=== PATIENT | female | born 1995 | race Two or more races ===

== ENCOUNTER 2017-02-21 16:13 | Emergency (ER) | payer OTHER ==
[2017-02-21] MEDS ORDERED: Morphine INJ* 4 MG/ML 1 ML SYRINGE IV ONE (18:21)
[2017-02-21] MEDS ORDERED: Ondansetron INJ* 2 MG/ML VIAL IV ONE (18:21)
[2017-02-21] MEDS ORDERED: NS 0.9% 1000 ML* 2,000 ML IV ONE (18:21)
[2017-02-21 18:58] LABS: Hematocrit 36 % (35-47); Hemoglobin 12.5 g/dl (12.0-16.0); Mean Corpuscular HGB Conc 35 g/dl (31-36); Mean Corpuscular Hemoglobin 31 pg (27-31); Mean Corpuscular Volume 87 fL (80-97); Mean Platelet Volume 8 um3 (7.4-10.4); Red Cell Distribution Width 14 % (10.5-15); White Blood Count 9.6 10^3/ul (3.5-10.8)
--- NOTE | 2017-02-21 19:02 | ED ---
Erwin Bradley Thomas, scribed for Edward Soria MD on 02/21/17 at 1814 . Abdominal Pain/Female - HPI Summary HPI Summary: The pt is a 21 y/o F presenting to the ED c/o abd pain that began gradually this AM at 07:30. The location of her pain is inferior to her umbilicus. This is near the location of her normal menstrual cramps. The pain radiates to her back and down her lower extremities. The pt rates the pain 7/10. The pain is aggravated and alleviated by nothing. The patient has treated the pain with Naproxen [employer], which has not relieved the pain. Pt additionally c/o nausea, vomiting (1x), diarrhea, bloody stool (red stool), chills, sore throat, rhinorrhea, and flank pain. She has used 4 pads today, which is more than usual for her. She reports recent sick contacts. She denies eating any unusual foods recently or recent travel. Her apptetite has been normal today, but she vomited back up all of the food that she ate. PMHx: previously healthy. PSHx: none. SHx: no smoking, no alcohol use. FHx: ovarian cysts. She ate today. - History of Current Complaint Chief Complaint: EDAbdPain Stated Complaint: ABD PAIN Time Seen by Provider: 02/21/17 18:00 Hx Obtained From: Patient Onset/Duration: Gradual Onset, Lasting Hours - 07:30, Still Present Timing: Constant Pain Intensity: 7 Pain Scale Used: 0-10 Numeric Location: Other - inferior to umbilicus Radiates: Yes Radiates to: Back, Other - Lower extremities Aggravating Factor(s): Nothing Alleviating Factor(s): Nothing Associated Signs and Symptoms: Positive: Back Pain, Blood in Stool - ("red stool "), Nausea, Vomiting, Diarrhea, Other: - POS: chills, sore throat, rhinorrhea, flank pain (R>L), increased menstrual bleeding; NEG: anorexia Allergies/Adverse Reactions: Allergies Allergy/AdvReac Type Severity Reaction Status Date / Time No Known Allergies Allergy Verified 02/21/17 16:29 PMH/Surg Hx/FS Hx/Imm Hx Previously Healthy: Yes Cardiovascular History: Denies: Hx Myocardial Infarction Respiratory History: Denies: Hx Chronic Obstructive Pulmonary Disease (COPD) Infectious Disease History: Denies: Traveled Outside the [place] in Last 30 Days - Family History Known Family History: Positive: Other - POS: ovarian cysts - Social History Hx Tobacco Use: No Review of Systems Positive: Chills. Negative: Fever Positive: Sore Throat, Nasal Discharge Positive: Abdominal Pain - onset this AM at 07:30, Vomiting, Diarrhea, Nausea, Other - POS: bloody stool ("red stool"); NEG: anorexia Positive: flank pain - R>L, other - POS: increased menstrual bleeding All Other Systems Reviewed And Are Negative: Yes Physical Exam - Summary Physical Exam Summary: The patient is well-nourished in no acute distress and in no acute pain. The skin is warm and dry and skin color reflects adequate perfusion. HEENT: The head is normocephalic and atraumatic. The pupils are equal and reactive. The conjunctivae are clear and without drainage. Nares are patent and without drainage. Mouth reveals moist mucous membranes and the throat is without erythema and exudate. The external ears are intact. There is no sinus tenderness. Neck is supple with full range of motion and non-tender. There are no carotid bruits. There is no neck vein distension. There is no cervical lymphadenopathy. Respiratory: Chest is non-tender. Lungs are clear to auscultation and breath sounds are symmetrical and equal. Cardiovascular: Hear tis regular rate and rhythm. There is no murmur or rub auscultated. There is no peripheral edema and pulses are symmetrical and equal. Abdomen: The abdomen is soft and obese. It is tender to [place] as well as over her uterus. She also has right CVA tenderness. There is no rebound or guarding. There is RLQ pain. There is pain with flexion of both legs. There are normal bowel sounds heard in all four quadrants and there is no organomegaly palpated. Musculoskeletal: There is no back pain noted. Extremities are non-tender with full range of motion. There is good capillary refill. There is no peripheral edema or calf tenderness elicited. Neurological: Patient is alert and oriented to person, place and time. The patient has symmetrical motor strength in all four extremities. Cranial nerves are grossly intact. Deep tendon reflexes are symmetrical and equal in all four extremities. Psychiatric: The patient has an appropriate affect and does not exhibit any anxiety or depression. Triage Information Reviewed: Yes Vital Signs On Initial Exam: Initial Vitals Temp Pulse Resp BP Pulse Ox 98.6 F 55 17 139/82 98 02/21/17 16:22 02/21/17 16:22 02/21/17 16:22 02/21/17 16:22 02/21/17 16:22 Vital Signs Reviewed: Yes Diagnostics - Vital Signs Vital Signs Temp Pulse Resp BP Pulse Ox 02/21/17 16:22 98.6 F 55 17 139/82 98 - Laboratory Lab Results: Lab Results 02/21/17 Range/Units 18:45 WBC 9.6 (3.5-10.8) 10^3/ul RBC 4.10 (4.0-5.4) 10^6/ul Hgb 12.5 (12.0-16.0) g/dl Hct 36 (35-47) % MCV 87 (80-97) fL MCH 31 (27-31) pg MCHC 35 (31-36) g/dl RDW 14 (10.5-15) % Plt Count 242 (150-450) 10^3/ul MPV 8 (7.4-10.4) um3 Neut % (Auto) 69.4 (38-83) % Lymph % (Auto) 20.7 L (25-47) % [place] % (Auto) 7.6 (1-9) % Eos % (Auto) 1.8 (0-6) % Baso % (Auto) 0.5 (0-2) % Absolute Neuts (auto) 6.6 (1.5-7.7) 10^3/ul Absolute Lymphs (auto) 2.0 (1.0-4.8) 10^3/ul Absolute Monos (auto) 0.7 (0-0.8) 10^3/ul Absolute Eos (auto) 0.2 (0-0.6) 10^3/ul Absolute Basos (auto) 0 (0-0.2) 10^3/ul Absolute Nucleated RBC 0.01 10^3/ul Nucleated RBC % 0.1 Result Diagrams: 02/21/17 18:45 Lab Statement: Any lab studies that have been ordered have been reviewed, and results considered in the medical decision making process. Abdominal Pain Fem Course/Dx - Diagnoses Differential Diagnosis: Positive: Appendicitis, Ovarian Cyst, Urinary Tract Infection, Other - gastritis, menses Provider Diagnoses: abdominal pain Discharge - Discharge Plan Condition: Fair Disposition: OTHER Discharge Disposition Comment: Singed out from Dr. Soria to Dr. Barajas Referrals: RADHA Kelly [Primary Care Provider] - The documentation as recorded by the Erwin sebastian Thomas accurately reflects the service I personally performed and the decisions made by me, Edward Soria MD.
[2017-02-21 19:06] LABS: Urine Bilirubin Negative (Negative); Urine Glucose Negative (Negative); Urine Nitrite Negative (Negative)
[2017-02-21 19:15] LABS: ALT 11 U/L (7-52); AST 14 U/L (13-39); Alkaline Phosphatase 44 U/L (34-104); Amylase 54 U/L (29-103); Anion Gap 6 mmol/L (2-11); BUN/Creatinine Ratio 12.5 (8-20); Blood Urea Nitrogen 9 mg/dL (6-24); C Reactive Protein 4.43 mg/L (< 5.00); CO2 Carbon Dioxide 26 mmol/L (22-32); Calcium 9.1 mg/dL (8.6-10.3); Chloride 105 mmol/L (101-111); EGFR African American 134.2 (>60); EGFR Non-African American 104.3 (>60); Globulin 3.3 g/dL (2-4); Glucose 95 mg/dL (70-100); Lipase 41 U/L (11.0-82.0); Potassium 3.6 mmol/L (3.5-5.0); Sodium 137 mmol/L (133-145); Total Protein 7.3 g/dL (6.4-8.9)
--- NOTE | 2017-02-21 19:36 | RAD ---
Indication: Vaginal bleeding, ovarian torsion. Real-time sonography of the pelvis was performed. Endovaginally the uterus measures 6.9 x 3.3 x 4.2 cm. Endometrial echo measures 6 mm. The right ovary measures 2.1 x 1.5 x 2.7 cm. Left ovary measures 2.3 x 1.7 x 1.7 cm. Doppler interrogation demonstrates flow in both ovaries. Trace amount of free fluid is noted in the cul-de-sac. IMPRESSION: No adnexal masses are noted. Trace amount of free fluid is noted in the cul-de-sac.
[2017-02-21] MEDS ORDERED: Iohexol 300* (CONTRAST) 10 ML SDV IV ONE (20:16)
--- NOTE | 2017-02-21 21:13 | RAD ---
Indication: Right lower quadrant pain. Contrast: Administered 139.3 ml of OMNIPAQUE 300 mg/ml CT of the abdomen and pelvis was performed after oral and IV contrast administration. Coronal and sagittal reconstructed images were obtained. Lung bases demonstrate no pleural fluid, nodules or masses. Heart is of normal size without evidence of pericardial effusion. Liver is normal in size. No focal lesions or intrahepatic ductal dilatation is noted. The gallbladder demonstrates no calcified gallstones. No pericholecystic fluid or wall thickening. The pancreas demonstrates no mass or pancreatic duct dilatation. The spleen is normal in size. No adrenal masses noted. The kidneys demonstrate symmetric nephrograms without focal lesions. Gallbladder demonstrates no calcified gallstones. No pericholecystic fluid or wall thickening is identified. Retroaortic left renal vein is noted. No dilated loops of bowel are noted. CT of the pelvis demonstrates normal appendix. Urinary bladder is unremarkable. Trace amount of free fluid is noted in the cul-de-sac. Uterus and ovaries are unremarkable. No hernias are noted. IMPRESSION: Normal appendix. Trace amount of free fluid is noted in the cul-de-sac. No abnormally dilated loops of bowel are noted. No other masses or fluid collections are noted.
[2017-02-21] MEDS ORDERED: Ketorolac INJ* 30 MG/ML 1 ML VIAL IV ONE (21:33)
[2017-02-21] MEDS ORDERED: HYDROcodone/ACETAMIN 5-325 MG* 1 TAB PO ONE (21:33)
[2017-02-21] MEDS ORDERED: Ondansetron ODT TAB* 4 MG PO ONE (21:34)
--- NOTE | 2017-02-21 21:36 | ED ---
Erwin Bradley Thomas, scribed for Eufemia Barajas MD on 02/21/17 at 2132 . Progress - Progress Note Progress Note: The patient is a sign out from Dr. Soria to Dr. Barajas. CT Abd/Pel. Interpreted by radiologist. Impression: Normal appendix. Trace amount of free fluid is noted in the cul-de-sac. No abnormally dilated loops of bowel are noted. No other masses or fluid collections are noted. US Transvaginal. Interpreted by radiologist. Impression: No adnexal masses are noted. Trace amount of free fluid is noted in the cul-de-sac. Course/Dx - Course Course Of Treatment: pt aware of results having some cramping now giving toradol and sending a script for small dose of norco and zofran home and to [facility] - Diagnoses Provider Diagnoses: abdominal pain The documentation as recorded by the Erwin sebastian Thomas accurately reflects the service I personally performed and the decisions made by , Eufemia Barajas MD.
[2017-02-21 22:18] VITALS: BP 117/76
== END 2017-02-21 22:16 ==
LOC: ED 16:13
DX: R10.31 Right lower quadrant pain (principal); N93.9 Abnormal uterine and vaginal bleeding, unspecified
CPT/HCPCS: 36415; 74177; 76830; 80053; 81003; 82150; 83605; 83690; 84702; 85025; 86140; 96360; 96374; 96375; 99283; A9270-GY; J1885; J2270; J2405; Q9967

== ENCOUNTER 2018-08-06 19:00 | Emergency (ER) | payer BC, OTHER ==
--- NOTE | 2018-08-06 21:18 | ED ---
Abdominal Pain/Female - HPI Summary HPI Summary: 22-year-old female presents with onset of left sided abdominal pain with nausea , vomiting, diarrhea yesterday. States she had approximately 8 episodes of vomiting yesterday and only 3-4 episodes today with the most recent occurring while in the waiting room approximately one hour ago. Reports vomiting stomach content. States yesterday she had approximately 6 episodes of watery diarrhea but only 3 episodes today. Patient states she has irregular spotting due to the Mirena. Last episode of spotting was approximately 3 weeks ago. Denies fever, chills, dizziness, lightheadedness, chest pain, palpitations, shortness of breath, flank pain, dysuria, frequency, urgency, hematuria, vaginal discharge , dyspareunia, recent travel out of the country, or consumption of raw or undercooked meats or seafood. - History of Current Complaint Chief Complaint: EDAbdPain Stated Complaint: ABD PAIN/VOMITING Time Seen by Provider: 08/06/18 21:16 Hx Obtained From: Patient Pain Intensity: 3 Allergies/Adverse Reactions: Allergies Allergy/AdvReac Type Severity Reaction Status Date / Time No Known Allergies Allergy Verified 08/06/18 19:16 PMH/Surg Hx/FS Hx/Imm Hx Previously Healthy: Yes - Denies significant PMH Cardiovascular History: Denies: Hx Myocardial Infarction Respiratory History: Denies: Hx Chronic Obstructive Pulmonary Disease (COPD) - Surgical History Surgery Procedure, Year, and Place: None Infectious Disease History: No Infectious Disease History: Denies: Traveled Outside the [place] in Last 30 Days - Family History Known Family History: Positive: Other - POS: ovarian cysts - Social History Occupation: Student Lives: Dormitory/Roommates Alcohol Use: None Substance Use Type: Reports: None Hx Tobacco Use: No Smoking Status (MU): Never Smoked Tobacco Review of Systems Negative: Fever, Chills Negative: Sore Throat Negative: Palpitations, Chest Pain Negative: Shortness Of Breath, Cough Positive: Abdominal Pain, Vomiting, Diarrhea, Nausea Negative: burning, dysuria, discharge, frequency, flank pain, hematuria, incontinence, urgency Musculoskeletal: Negative Skin: Negative Neurological: Negative All Other Systems Reviewed And Are Negative: Yes Physical Exam - Summary Physical Exam Summary: GENERAL APPEARANCE: Well developed, well nourished, alert and cooperative, and appears to be in no acute distress. THROAT: Oral cavity and pharynx normal. No inflammation, swelling, exudate, or lesions. Teeth and gingiva in good general condition. NECK: Neck supple, non-tender without lymphadenopathy. CARDIAC: Normal S1 and S2. No S3, S4 or murmurs. Rhythm is regular. There is no peripheral edema, cyanosis or pallor. Extremities are warm and well perfused. Capillary refill is less than 2 seconds. Peripheral pulses intact. LUNGS: Clear to auscultation without rales, rhonchi, wheezing or diminished breath sounds. ABDOMEN: Positive bowel sounds. Soft, nondistended. Mild generalized abdominal tenderness without guarding or rebound. No masses or hepatosplenomegally. No CVA tenderness. MUSKULOSKELETAL: ROM intact to all extremities. No joint erythema or tenderness. Normal muscular development. Normal gait. SKIN: Skin normal color, texture and turgor with no lesions or eruptions. Triage Information Reviewed: Yes Vital Signs On Initial Exam: Initial Vitals Temp Pulse Resp BP Pulse Ox 98.9 F 94 16 130/82 96 08/06/18 19:14 08/06/18 19:14 08/06/18 19:14 08/06/18 19:14 08/06/18 19:14 Vital Signs Reviewed: Yes Diagnostics - Vital Signs Vital Signs Temp Pulse Resp BP Pulse Ox 08/06/18 19:14 98.9 F 94 16 130/82 96 - Laboratory Result Diagrams: 08/06/18 21:42 08/06/18 21:42 Lab Statement: Any lab studies that have been ordered have been reviewed, and results considered in the medical decision making process. Re-Evaluation - Re-Evaluation First Eval Re-Evaluation Time: 23:36 Change: Improved Comment: Patient states she is feeling better. She has received 2 liters IVF and ondansetron 8 mg IV. Afebrile. VSS. She is presently taking PO fluids without any further episodes of vomiting or diarrhea. CBC and CMP normal. Serum negative. UA pending. Plan is to d/c home pending UA results. Abdominal Pain Fem Course/Dx - Course Course Of Treatment: 22-year-old female presents with onset of left sided abdominal pain with nausea, vomiting, diarrhea yesterday. States she had approximately 8 episodes of vomiting yesterday and only 3-4 episodes today with the most recent occurring while in the waiting room approximately one hour ago. Reports vomiting stomach content. States yesterday she had approximately 6 episodes of watery diarrhea but only 3 episodes today. Patient states she has irregular spotting due to the Mirena. Last episode of spotting was approximately 3 weeks ago. Denies fever, chills, dizziness, lightheadedness, chest pain, palpitations, shortness of breath, flank pain, dysuria, frequency, urgency, hematuria, vaginal discharge, dyspareunia, recent travel out of the country, or consumption of raw or undercooked meats or seafood. Afebrile. Vital signs stable. Exam revealed an obese young adult female in no acute distress. She had some mild generalized abdominal tenderness without guarding or rebound. Remainder of exam was unremarkable. CBC and CMP were within normal limits. Urinalysis showed 1+ ketones otherwise normal. She received a total of 2 L of normal saline and ondansetron 8 mg IV with improvement in symptoms. Her vital signs remained stable and she was able to tolerate by mouth fluids without any further episodes of vomiting or diarrhea prior to discharge. Patient symptoms likely represent a viral gastroenteritis. I'm discharging her home with 2 doses of ondansetron ODT 4 mg every 6 hours as needed for nausea and vomiting and sending a prescription for some additional tablets if needed. She was afebrile with stable vital signs at time of discharge. She is to follow-up at the [facility] or her primary care provider in 3 days if symptoms do not improve. Anticipatory guidance warning symptoms were reviewed with the patient. Verbalizes understanding and agrees with plan of care. - Diagnoses Differential Diagnosis: Positive: Appendicitis, Diverticulitis, Gall Bladder Disease, , Urinary Tract Infection, Other - viral gastroenteritis, bacterial gastroenteritis Provider Diagnoses: Nausea vomiting and diarrhea Discharge - Sign-Out/Discharge Documenting (check all that apply): Patient Departure Patient Received Moderate/Deep Sedation with Procedure: No - Discharge Plan Condition: Stable Disposition: HOME Prescriptions: Ondansetron ODT TAB* [Zofran 4 MG Odt TAB*] 4 mg PO Q6H PRN #6 tab.odt PRN Reason: Nausea/Vomiting Patient Education Materials: Acute Nausea and Vomiting (ED), Acute Diarrhea (ED ) Referrals: No Primary Care Phys,NOPCP [Primary Care Provider] - Additional Instructions: Take ondansetron ODT 1 tab every 6 hours as needed for nausea or vomiting. Drink plenty of fluids. Try to drink small amounts frequently to avoid filling your stomach to full which can cause vomiting. Avoid beverages containing caffeine or artificial sweeteners as these can worsen diarrhea. If you are still having vomiting, start with a clear liquid diet including soup broths, Jello, popsicles, and libby-yann with carbonation stirred out of it. You may then advance to a bland diet including saltine crackers, toast, bananas , rice, and applesauce. Then return to a normal diet as tolerated. Follow up at the [facility] or with your primary care provider in 3 days if symptoms persist. Return to the emergency room if you develop fever greater than 100.5 F, have severe abdominal pain, persistent vomiting, blood in your vomit or stool, or any worsening of symptoms. - Billing Disposition and Condition Condition: STABLE Disposition: Home
[2018-08-06] MEDS ORDERED: Ondansetron INJ* 2 MG/ML VIAL IV ONE (21:25)
[2018-08-06] MEDS: NS 0.9% 1000 ML** 1,000 ML IV ONE ×2 (21:37→22:49)
[2018-08-06 21:50] LABS: ABS Basophils 0 10^3/ul (0-0.2); ABS Eosinophils 0.1 10^3/ul (0-0.6); ABS Lymphocytes 1.1 10^3/ul (1.0-4.8); ABS Monocytes 0.6 10^3/ul (0-0.8); ABS Nucleated RBC 0 10^3/ul; Eosinophil % 1.2 %; Hematocrit 37 % (35-47); Hemoglobin 12.6 g/dl (12.0-16.0); Lymphocyte % 19.4 %; Mean Corpuscular HGB Conc 34 g/dl (31-36); Mean Corpuscular Hemoglobin 29 pg (27-31); Mean Corpuscular Volume 85 fL (80-97); Mean Platelet Volume 7.8 fL (7.4-10.4); Nucleated Red Blood Cells % 0; Platelet Count 210 10^3/ul (150-450); Red Blood Count 4.38 10^6/ul (4.00-5.40); Red Cell Distribution Width 13 % (10.5-15); White Blood Count 5.8 10^3/ul (3.5-10.8)
[2018-08-06 22:07] LABS: ALT 23 U/L (7-52); AST 19 U/L (13-39); Albumin 4.1 g/dL (3.2-5.2); Albumin/Globulin Ratio 1.1 (1-3); Alkaline Phosphatase 69 U/L (34-104); Anion Gap 6 mmol/L (2-11); BUN/Creatinine Ratio 12.3 (8-20); Blood Urea Nitrogen 9 mg/dL (6-24); CO2 Carbon Dioxide 29 mmol/L (22-32); Calcium 9.1 mg/dL (8.6-10.3); Chloride 103 mmol/L (101-111); EGFR Non-African American 101.6 (>60); Globulin 3.7 g/dL (2-4); Glucose 94 mg/dL (70-100); Potassium 3.6 mmol/L (3.5-5.0); Sodium 138 mmol/L (135-145); Total Protein 7.8 g/dL (6.4-8.9)
[2018-08-06 22:13] LABS: HCG Pregnancy < 0.60 mIU/mL
[2018-08-06] MEDS ORDERED: Ketorolac INJ* 30 MG/ML 1 ML VIAL ONE (22:48)
[2018-08-06] MEDS ORDERED: Ketorolac INJ* 30 MG/ML 1 ML VIAL IV PUSH ONE (22:49)
[2018-08-06] MEDS ORDERED: NS 0.9% 1000 ML** 1,000 ML IV ONE (23:05)
[2018-08-07 00:01] LABS: Urine Appearance Clear; Urine Bilirubin Negative (Negative); Urine Blood Negative (Negative); Urine Color Yellow; Urine Glucose Negative (Negative); Urine Ketones 1+ (Negative); Urine Nitrite Negative (Negative); Urine Protein Negative (Negative); Urine Specific Gravity 1.026 (1.010-1.030); Urine Urobilinogen Negative (Negative)
[2018-08-07] MEDS ORDERED: Ondansetron ODT TAB* 4 MG PO ONE (00:12)
[2018-08-07 01:32] VITALS: BP 134/74
== END 2018-08-07 01:33 | disposition home or self-care (01) ==
LOC: ED 19:00
DX: R11.2 Nausea with vomiting, unspecified (principal); R19.7 Diarrhea, unspecified; R10.84 Generalized abdominal pain; Z32.02 Encounter for pregnancy test, result negative
CPT/HCPCS: 36415; 80053; 81003; 84702; 85025; 96361; 96374; 96375; 99283; A9270-GY; J1885; J2405